=== PATIENT | female | born 1995 | race African-American/Black ===

== ENCOUNTER 2017-10-11 02:27 | Emergency (ER) | payer SELFPAY ==
[2017-10-11] MEDS ORDERED: NS 0.9% 1000 ML* 1,000 ML IV ONE (02:52)
[2017-10-11] MEDS ORDERED: Ondansetron INJ* 2 MG/ML VIAL IV ONE (02:53)
[2017-10-11 03:26] LABS: ABS Basophils 0 10^3/ul (0-0.2); ABS Eosinophils 0.1 10^3/ul (0-0.6); ABS Lymphocytes 1.1 10^3/ul (1.0-4.8); ABS Monocytes 0.3 10^3/ul (0-0.8); ABS Neutrophils 2.6 10^3/ul (1.5-7.7); ABS Nucleated RBC 0 10^3/ul; Eosinophil % 1.5 % (0-6); Hematocrit 32 % (35-47); Hemoglobin 10.9 g/dl (12.0-16.0); Lymphocyte % 26.1 % (25-47); Mean Corpuscular HGB Conc 34 g/dl (31-36); Mean Corpuscular Hemoglobin 29 pg (27-31); Mean Corpuscular Volume 85 fL (80-97); Mean Platelet Volume 8.3 um3 (7.4-10.4); Nucleated Red Blood Cells % 0; Platelet Count 143 10^3/ul (150-450); Red Cell Distribution Width 13 % (10.5-15); White Blood Count 4.1 10^3/ul (3.5-10.8)
[2017-10-11 03:36] LABS: EGFR Non-African American 129.9 (>60)
--- NOTE | 2017-10-11 06:07 | ED ---
Stephanie Jiménez Jason, scribed for Holly Ivey MD on 10/11/17 at 0240 . Substance Abuse/Use - HPI Summary HPI Summary: This patient is a 21 year old F presenting to [facility] with a chief complaint of alcohol intoxication since 0200 today. Patient history is limited due to alcohol intoxication. The patient rates the pain 0/10 in severity. Symptoms aggravated by nothing. Symptoms alleviated by nothing. - History Of Current Complaint Stated Complaint: ETOH Hx Obtained From: Patient Hx From Patient Unobtainable Due To: Other - alcohol intoxication Timing Of Abuse: Binge Use Aggravating Factor(s): Nothing Alleviating Factor(s): Nothing Associated Signs And Symptoms: Other: - alcohol intoxication - Allergies/Home Medications Home Medications: Home Medications Unobtainable [Unobtainable] 10/11/17 [History Confirmed 10/11/17] PMH/Surg Hx/FS Hx/Imm Hx Previously Healthy: Yes Opthamlomology History: Denies: Hx Legally Blind EENT History: Denies: Hx Deafness - Family History Known Family History: Negative: Blood Disorder - Social History Occupation: Student Lives: Dormitory/Roommates Hx Substance Use: No Review of Systems Negative: Fever Positive: Other - alcohol intoxication All Other Systems Reviewed And Are Negative: Yes Physical Exam - Summary Physical Exam Summary: GENERAL: ~Patient is a well developed and nourished female who is lying comfortable in the stretcher. ~Patient is not in any acute respiratory distress. HEAD AND FACE: Normocephalic EYES: PERRLA, EOMI x 2. EARS: Hearing grossly intact. MOUTH: Oropharynx within normal limits. NECK: Supple, trachea is midline, no adenopathy, no JVD, no carotid bruit. CHEST: Symmetric, no tenderness at palpation LUNGS: Clear to auscultation bilaterally. No wheezing or crackles. CVS: Regular rate and rhythm, S1 and S2 present, no murmurs or gallops appreciated. ABDOMEN: Soft, non-tender. Bowel sounds are normal. No abdominal abnormal pulsations. EXTREMITIES: Full ROM in all major joints, no edema, no cyanosis or clubbing. NEURO: Alert and oriented x 3. No acute neurological deficits. Speech is normal and follows commands. SKIN: Dry and warm Triage Information Reviewed: Yes Vital Signs Reviewed: Yes Diagnostics - Laboratory Result Diagrams: 10/11/17 03:05 04/22/18 03:05 Lab Statement: Any lab studies that have been ordered have been reviewed, and results considered in the medical decision making process. Course/Dx - Course Assessment/Plan: This patient is a 21 year old F presenting to [facility] with a chief complaint of alcohol intoxication since 0200 today. Patients alcohol level is 248. Patient is awaiting clinical sobriety. Patient will be signed out to Dr. Lund. - Diagnoses Provider Diagnoses: Alcohol intoxication Discharge - Sign-Out/Discharge Documenting (check all that apply): Sign-Out Patient Signing out patient TO: Alexander Lund Receiving patient FROM: Holly Ivey - Discharge Plan Condition: Stable The documentation as recorded by the Stephanie robins Jason accurately reflects the service I personally performed and the decisions made by Uche westfall Tudie-Ann, MD.
[2017-10-11 07:29] VITALS: BP 108/70
--- NOTE | 2017-10-11 10:10 | ED ---
Bree Jiménez Thomas, scribed for Alexander Lund MD on 10/11/17 at 0748 . Progress - Progress Note Progress Note: The patient is a sign out from Dr. Ivey at shift change, awaiting clinical sobriety and discharge. The patient was discharged home when she was sober enough to be safely discharged. Course/Dx - Diagnoses Provider Diagnoses: Alcohol intoxication Discharge - Sign-Out/Discharge Documenting (check all that apply): Discharge, Receiving Sign-Out Receiving patient FROM: Holly Ivey - Discharge Plan Condition: Stable Disposition: HOME Patient Education Materials: Alcohol Intoxication (ED) Additional Instructions: RETURN TO THE EMERGENCY DEPARTMENT FOR CHANGING OR WORSENING SYMPTOMS. The documentation as recorded by the Bree robins Thomas accurately reflects the service I personally performed and the decisions made by , Alexander Lund MD.
== END 2017-10-11 07:26 | disposition home or self-care (01) ==
LOC: ED 02:27
DX: F10.129 Alcohol abuse with intoxication, unspecified (principal)
CPT/HCPCS: 36415; 80053; 80320; 84702; 85025; 96374; 99282; G0480